=== PATIENT | female | born 1930 | race Caucasian/White ===

== ENCOUNTER → 2016-08-10 | Outpatient (REF) | payer MEDICARE ==
[~2016-08-10] MED LIST: ADV250INH INH; AMLO10TA2 PO; ASPI81TA13 PO; BENA40TA2 PO; BISO10TA6 PO; COLA100C PO; DOXY100C PO; FURO20TA2 PO; MILKSUS PO; NYST10PW TOP; PANT40TA2 PO; PERCOCET PO; PRAV1TAB39 PO; PROA1AER INH; VITA200016 PO
[2016-08-10 09:34] LABS: CALCIUM LEVEL 8.9 MG/DL (8.8-10.2); CREATININE FOR GFR 1.08 MG/DL (0.55-1.02); GLOMERULAR FILTRATION RATE 51.2 (>32); POTASSIUM SERUM 4.5 MEQ/L (3.5-5.1)
== END ==
LOC: SKLAB4 09:59
PROVIDERS: ATTEND Family Medicine
DX: N18.9 Chronic kidney disease, unspecified (principal)

== ENCOUNTER → 2016-09-07 | Outpatient (REF) | payer MEDICARE ==
[2016-09-07 09:51] LABS: CALCIUM LEVEL 9.5 MG/DL (8.8-10.2); CREATININE FOR GFR 1.2 MG/DL (0.55-1.02); GLOMERULAR FILTRATION RATE 45.3 (>32); POTASSIUM SERUM 4.8 MEQ/L (3.5-5.1)
== END ==
LOC: SKLAB4 09:15
PROVIDERS: ATTEND Family Medicine
DX: N18.9 Chronic kidney disease, unspecified (principal); J44.9 Chronic obstructive pulmonary disease, unspecified

== ENCOUNTER → 2016-10-05 | Outpatient (REF) | payer MEDICARE ==
[2016-10-05 08:30] LABS: MEAN CORPUSCULAR HEMOGLOBIN 30.5 pg (27.0-33.0); MEAN CORPUSCULAR HGB CONC 32.6 g/dl (32.0-36.5); MEAN CORPUSCULAR VOLUME 93.7 fl (80.0-96.0); RED CELL DISTRIBUTION WIDTH 13.7 % (11.5-14.5)
[2016-10-05 08:47] LABS: CALCIUM LEVEL 8.9 MG/DL (8.8-10.2); CREATININE FOR GFR 1.08 MG/DL (0.55-1.02); GLOMERULAR FILTRATION RATE 51.1 (>32); POTASSIUM SERUM 4.9 MEQ/L (3.5-5.1)
== END ==
LOC: SKLAB4 09:43
PROVIDERS: ATTEND Family Medicine
DX: E11.9 Type 2 diabetes mellitus without complications (principal); I10 Essential (primary) hypertension; R60.9 Edema, unspecified

== ENCOUNTER → 2017-01-04 | Outpatient (REF) | payer MEDICARE ==
[~2017-01-04] MED LIST changes: -COLA100C PO; +COLA100C3 PO
[2017-01-04 09:28] LABS: MEAN CORPUSCULAR HEMOGLOBIN 30.4 pg (27.0-33.0); MEAN CORPUSCULAR HGB CONC 32.8 g/dl (32.0-36.5); MEAN CORPUSCULAR VOLUME 92.7 fl (80.0-96.0); RED CELL DISTRIBUTION WIDTH 13.6 % (11.5-14.5); WHITE BLOOD COUNT 6.6 K/mm3 (4.0-10.0)
[2017-01-04 10:28] LABS: CALCIUM LEVEL 8.9 MG/DL (8.8-10.2); CREATININE FOR GFR 1.09 MG/DL (0.55-1.02); GLOMERULAR FILTRATION RATE 50.5 (>32); POTASSIUM SERUM 4.6 MEQ/L (3.5-5.1)
== END ==
LOC: SKLAB4 09:50
PROVIDERS: ATTEND Family Medicine
DX: N18.9 Chronic kidney disease, unspecified (principal)

== ENCOUNTER → 2017-04-05 | Outpatient (REF) | payer MEDICARE ==
[~2017-04-05] MED LIST changes: -ASPI81TA13 PO; +ASPI81TA24 PO; -BENA40TA2 PO; +BENA40TA7 PO; -COLA100C3 PO; +COLA100C5 PO; -PROA1AER INH; +PROAAER10 INH
[2017-04-05 10:17] LABS: MEAN CORPUSCULAR HEMOGLOBIN 30.9 pg (27.0-33.0); MEAN CORPUSCULAR HGB CONC 32.9 g/dl (32.0-36.5); MEAN CORPUSCULAR VOLUME 93.7 fl (80.0-96.0); RED CELL DISTRIBUTION WIDTH 13.5 % (11.5-14.5); WHITE BLOOD COUNT 5.5 K/mm3 (4.0-10.0)
[2017-04-05 10:31] LABS: CREATININE FOR GFR 1.21 MG/DL (0.55-1.02); GLOMERULAR FILTRATION RATE 44.8 (>32); POTASSIUM SERUM 4.3 MEQ/L (3.5-5.1)
== END ==
LOC: SKLAB4 09:57
PROVIDERS: ATTEND Family Medicine
DX: N18.9 Chronic kidney disease, unspecified (principal); E11.9 Type 2 diabetes mellitus without complications

== ENCOUNTER → 2017-06-24 | Outpatient (REF) | payer MEDICARE ==
--- NOTE | 2017-06-24 16:54 | REP ---
MANDIBLE SERIES COMPLETE: 06/24/2017. Clinical history: Non restorable teeth. Findings: Mandible performed as patients shoulders interfered with the Panorex study. She states issue on the right side. The right mandibular 1st molar has lucency about its roots minimally so for the second molar. The second molar shows a large carious defect anteriorly, other carious teeth and most of the maxillary dentition is missing. No fracture or destructive lesion. Bones are demineralized. Impression: 1. Lucency about the roots of the first molar on the right mandible and large carious defect anterior aspect of the second molar on that right side. Other carious teeth also noted on the mandible but roots not showing similar lucencies. Signed by Duy Jeronimo MD 06/24/2017 08:45 P
== END ==
LOC: SKLAB4 09:35
PROVIDERS: ATTEND Family Medicine
DX: K08.89 Other specified disorders of teeth and supporting structures (principal)

== ENCOUNTER → 2017-07-05 | Outpatient (REF) | payer MEDICARE ==
[2017-07-05 08:58] LABS: MEAN CORPUSCULAR HEMOGLOBIN 30.1 pg (27.0-33.0); MEAN CORPUSCULAR HGB CONC 31.6 g/dl (32.0-36.5); MEAN CORPUSCULAR VOLUME 95.2 fl (80.0-96.0); PLATELET COUNT, AUTOMATED 297 10^3/uL (150-450); RED CELL DISTRIBUTION WIDTH 13.3 % (11.5-14.5); WHITE BLOOD COUNT 7.3 10^3/uL (4.0-10.0)
[2017-07-05 09:32] LABS: CALCIUM LEVEL 9.4 MG/DL (8.8-10.2); CREATININE FOR GFR 1.16 MG/DL (0.55-1.02); POTASSIUM SERUM 4.4 MEQ/L (3.5-5.1)
== END ==
LOC: SKLAB4 09:42
PROVIDERS: ATTEND Family Medicine
DX: D64.9 Anemia, unspecified (principal); N28.9 Disorder of kidney and ureter, unspecified

== ENCOUNTER → 2017-10-04 | Outpatient (REF) | payer MEDICARE ==
[2017-10-04 08:26] LABS: HEMATOCRIT 35.9 % (36.0-47.0); HEMOGLOBIN 11.4 g/dl (12.0-16.0); MEAN CORPUSCULAR HEMOGLOBIN 30.1 pg (27.0-33.0); MEAN CORPUSCULAR HGB CONC 31.8 g/dl (32.0-36.5); MEAN CORPUSCULAR VOLUME 94.7 fl (80.0-96.0); PLATELET COUNT, AUTOMATED 251 10^3/uL (150-450); RED BLOOD COUNT 3.79 10^6/uL (4.00-5.40); RED CELL DISTRIBUTION WIDTH 13.1 % (11.5-14.5); WHITE BLOOD COUNT 8.1 10^3/uL (4.0-10.0)
[2017-10-04 08:51] LABS: ESTIMATED AVERAGE GLUCOSE 105 MG/DL (60-110); HEMOGLOBIN A1c 5.3 %
[2017-10-04 08:56] LABS: ANION GAP 12 MEQ/L (8-16); BLOOD UREA NITROGEN 28 MG/DL (7-18); CALCIUM LEVEL 8.7 MG/DL (8.8-10.2); CARBON DIOXIDE LEVEL 27 MEQ/L (21-32); CHLORIDE LEVEL 95 MEQ/L (98-107); CREATININE FOR GFR 1.17 MG/DL (0.55-1.30); GLOMERULAR FILTRATION RATE 46.5 (>32); GLUCOSE, FASTING 86 MG/DL (70-100); POTASSIUM SERUM 4.7 MEQ/L (3.5-5.1); SODIUM LEVEL 134 MEQ/L (136-145)
== END ==
LOC: SKLAB4 09:26
DX: E03.9 Hypothyroidism, unspecified (principal); D64.9 Anemia, unspecified; E11.9 Type 2 diabetes mellitus without complications
CPT/HCPCS: 84443

== ENCOUNTER → 2018-01-03 | Outpatient (REF) | payer MEDICARE ==
[2018-01-03 08:22] LABS: HEMATOCRIT 33.3 % (36.0-47.0); HEMOGLOBIN 10.7 g/dl (12.0-15.5); MEAN CORPUSCULAR HEMOGLOBIN 30.1 pg (27.0-33.0); MEAN CORPUSCULAR HGB CONC 32.1 g/dl (32.0-36.5); MEAN CORPUSCULAR VOLUME 93.8 fl (80.0-96.0); PLATELET COUNT, AUTOMATED 215 10^3/uL (150-450); RED BLOOD COUNT 3.55 10^6/uL (4.00-5.40); RED CELL DISTRIBUTION WIDTH 13.2 % (11.5-14.5)
[2018-01-03 08:43] LABS: ANION GAP 6 MEQ/L (8-16); BLOOD UREA NITROGEN 24 MG/DL (7-18); CALCIUM LEVEL 8.8 MG/DL (8.8-10.2); CARBON DIOXIDE LEVEL 30 MEQ/L (21-32); CHLORIDE LEVEL 97 MEQ/L (98-107); CREATININE FOR GFR 1.06 MG/DL (0.55-1.30); GLOMERULAR FILTRATION RATE 52.1 (>32); GLUCOSE, FASTING 87 MG/DL (70-100); POTASSIUM SERUM 4.9 MEQ/L (3.5-5.1); SODIUM LEVEL 133 MEQ/L (136-145)
== END ==
LOC: SKLAB4 09:45
DX: N18.9 Chronic kidney disease, unspecified (principal)
CPT/HCPCS: 36415

== ENCOUNTER → 2018-04-04 | Outpatient (REF) | payer MEDICARE ==
[2018-04-04 10:21] LABS: HEMOGLOBIN 11.3 g/dl (12.0-15.5); MEAN CORPUSCULAR HEMOGLOBIN 30.7 pg (27.0-33.0); MEAN CORPUSCULAR HGB CONC 32.3 g/dl (32.0-36.5); MEAN CORPUSCULAR VOLUME 95.1 fl (80.0-96.0); PLATELET COUNT, AUTOMATED 229 10^3/uL (150-450); RED BLOOD COUNT 3.68 10^6/uL (4.00-5.40); RED CELL DISTRIBUTION WIDTH 13.6 % (11.5-14.5); WHITE BLOOD COUNT 5.3 10^3/uL (4.0-10.0)
[2018-04-04 10:44] LABS: ANION GAP 10 MEQ/L (8-16); BLOOD UREA NITROGEN 20 MG/DL (7-18); CALCIUM LEVEL 9.2 MG/DL (8.8-10.2); CARBON DIOXIDE LEVEL 31 MEQ/L (21-32); CHLORIDE LEVEL 95 MEQ/L (98-107); CREATININE FOR GFR 1.08 MG/DL (0.55-1.30); GLUCOSE, FASTING 112 MG/DL (70-100); POTASSIUM SERUM 4.6 MEQ/L (3.5-5.1); SODIUM LEVEL 136 MEQ/L (136-145)
[2018-04-04 10:58] LABS: ESTIMATED AVERAGE GLUCOSE 111 MG/DL (60-110); HEMOGLOBIN A1c 5.5 %
== END ==
LOC: SKLAB4 10:02
DX: N18.9 Chronic kidney disease, unspecified (principal); E11.9 Type 2 diabetes mellitus without complications; D64.9 Anemia, unspecified
CPT/HCPCS: 83036

== ENCOUNTER → 2018-04-29 | Outpatient (REF) | payer MEDICARE ==
[2018-04-29 07:43] LABS: BASO % 0.3 % (0.0-1.0); EOS # 0.4 10^3/uL (0.0-0.50); EOS % 6.1 % (0.0-3.0); HEMATOCRIT 35.5 % (36.0-47.0); HEMOGLOBIN 11.4 g/dl (12.0-15.5); IMMATURE GRANULOCYTE % 1.7 % (0-3.0); LYMPH # 1.7 10^3/uL (1.5-4.5); LYMPH % 25.5 % (24.0-44.0); MEAN CORPUSCULAR HGB CONC 32.1 g/dl (32.0-36.5); MEAN CORPUSCULAR VOLUME 96.5 fl (80.0-96.0); MONO % 14.7 % (0.0-5.0); NEUTROPHILS # 3.4 10^3/uL (1.8-7.7); NEUTROPHILS % 51.7 % (36.0-66.0); PLATELET COUNT, AUTOMATED 244 10^3/uL (150-450); RED BLOOD COUNT 3.68 10^6/uL (4.00-5.40); RED CELL DISTRIBUTION WIDTH 13.4 % (11.5-14.5); WHITE BLOOD COUNT 6.5 10^3/uL (4.0-10.0)
== END ==
LOC: SKLAB4 06:59
DX: K62.5 Hemorrhage of anus and rectum (principal)
CPT/HCPCS: 85025

== ENCOUNTER → 2018-07-07 | Outpatient (REF) | payer MEDICARE ==
[~2018-07-07] MED LIST changes: -AMLO10TA2 PO; +AMLO10TA4 PO; +MILK12002 PO; -MILKSUS PO; -PANT40TA2 PO; +PANT40TA3 PO
[2018-07-07 07:53] LABS: CALCIUM LEVEL 9.1 MG/DL (8.8-10.2); CREATININE FOR GFR 1.15 MG/DL (0.55-1.30); GLOMERULAR FILTRATION RATE 47.4 (>32); POTASSIUM SERUM 4.8 MEQ/L (3.5-5.1)
== END ==
LOC: SKLAB4 10:07
PROVIDERS: ATTEND Family Medicine
DX: R60.9 Edema, unspecified (principal)

== ENCOUNTER → 2018-07-20 | Outpatient (CLI) | payer MEDICARE ==
[~2018-07-20] MED LIST changes: -AMLO10TA4 PO; +AMLO10TA5 PO; +MILK120011 PO; -MILK12002 PO
--- NOTE | 2018-07-20 08:00 | REP ---
Duplex extremity venous ultrasound: Left lower extremity. History: Pain and swelling. Question DVT. Findings: The deep veins are anechoic and fully compressible from the groin to the popliteal fossa in the left lower extremity. Color flow imaging is homogeneous. Spectral Doppler interrogation demonstrates intact respiratory variation in flow and normal manual augmentation of flow. There is no evidence of deep vein thrombosis. Impression: Negative left lower extremity duplex venous ultrasound. No evidence of deep vein thrombosis. Electronically Signed by Froilan Rolon MD 07/20/2018 07:51 A
[2018-07-21 09:07] LABS: CALCIUM LEVEL 8.7 MG/DL (8.8-10.2); CREATININE FOR GFR 1.12 MG/DL (0.55-1.30); GLOMERULAR FILTRATION RATE 48.9 (>32); POTASSIUM SERUM 5.2 MEQ/L (3.5-5.1)
== END ==
LOC: M RAD 06:06
PROVIDERS: ATTEND Nurse Practitioner Family
DX: M79.605 Pain in left leg (principal); M79.89 Other specified soft tissue disorders

== ENCOUNTER → 2018-07-21 | Outpatient (REF) | payer MEDICARE ==
[~2018-07-21] MED LIST changes: +AMLO10TA4 PO; -AMLO10TA5 PO; -MILK120011 PO; +MILK12002 PO
== END ==
LOC: SKLAB4 09:30
PROVIDERS: ATTEND Family Medicine
DX: R60.9 Edema, unspecified (principal)

== ENCOUNTER → 2018-07-21 | Outpatient (REF) | payer MEDICARE | LOC: SKLAB4 09:29 | PROVIDERS: ATTEND Family Medicine | DX: R60.9 Edema, unspecified (principal) ==

== ENCOUNTER → 2018-08-31 | Outpatient (REF) | payer MEDICARE ==
[~2018-08-31] MED LIST changes: +ACET1TAB55 PO; -AMLO10TA4 PO; +AMLO10TA5 PO; +AMLO2.5T3 PO; +CITA10TA5 PO; +DULC10SU2 PR; +GABA-1171 PO; +GABA600T4 PO; +MIAC200S2; +MILK120011 PO; -MILK12002 PO; +MULTCAP PO; +PREP1CRE EX; +SYMB16INH INH; +TYLE650T35 PO
[2018-09-03 00:07] LABS: FATS NEUTRAL Normal (.); FATS TOTAL Normal (.)
== END ==
LOC: SKLAB4 13:59
PROVIDERS: ATTEND Family Medicine
DX: Z01.818 Encounter for other preprocedural examination (principal)

== ENCOUNTER 2018-09-08 08:52 | Day surgery (SDC) | payer MEDICARE ==
[~2018-09-08] VITALS: Ht 147.3 cm; Wt 81.4 kg
[~2018-09-08 08:52] MED LIST changes: +NS 1,000 ML IV SCH
[2018-09-08] MEDS ORDERED: PROPOFOL 200 MG/20 ML VIAL As Ordered ONE (10:43)
[2018-09-08] MEDS ORDERED: LIDOCAINE 2% INJ 100 MG/5 ML SDV (FOR ANES.) As Ordered ONE (10:43)
[2018-09-08] MEDS ORDERED: ESMOLOL INJ 100MG/10ML VIAL As Ordered ONE (11:01)
--- NOTE | 2018-09-08 11:41 | ROOR ---
Patient Name: Emma Mckinney Procedure Date: 09/08/2018 10:56 AM Date of : 1930 Age: 87 Room: [facility] Gender: Female Note Status: Finalized Procedure: Colonoscopy Indications: Change in bowel habits, Diarrhea, Fecal incontinence Providers: Cayetano ALAS MD Referring MD: Sp Keating MD Requesting Provider: Medicines: Monitored Anesthesia Care Complications: No immediate complications. Procedure: Pre-Anesthesia Assessment: - The heart rate, respiratory rate, oxygen saturations, blood pressure, adequacy of pulmonary ventilation, and response to care were monitored throughout the procedure. The Colonoscope was introduced through the anus and advanced to the cecum, identified by appendiceal orifice and ileocecal valve. The colonoscopy was performed without difficulty. The patient tolerated the procedure well. The quality of the bowel preparation was good/adequate. (pt only took some of the mag citrate and 1/2 the trilyte prep) Findings: The digital rectal exam findings include decreased sphincter tone. Multiple small and large-mouthed diverticula were found in the sigmoid colon, descending colon, ascending colon and cecum. Erythema was seen in association with the diverticular opening. Biopsies were taken with a cold forceps for histology. Internal hemorrhoids were found during retroflexion. The hemorrhoids were large. The exam was otherwise normal throughout the examined colon. Biopsies for histology were taken with a cold forceps from the entire colon for evaluation of microscopic colitis. Impression: - Decreased sphincter tone found on digital rectal exam. - Moderate neves diverticulosis in the entire colon. Erythema was seen in association with the diverticular opening in the mid sigmoid area. The erythematous fold was biopsied. - Internal hemorrhoids. - Biopsies were taken with a cold forceps from the entire colon for evaluation of microscopic colitis. Recommendation: - Telephone endoscopist for pathology results in 2 weeks. - Await pathology results. Cayetano Alas MD Cayetano ALAS MD 09/08/2018 11:41:02 AM This report has been signed electronically. Number of Addenda: 0 Note Initiated On: 09/08/2018 10:56 AM Estimated Blood Loss: Estimated blood loss: none.
[2018-09-08 12:00] VITALS: BP 133/67
== END 2018-09-08 12:24 | disposition home or self-care (01) ==
LOC: M OPP 08:52
PROVIDERS: ATTEND Internal Medicine Gastroenterology
DX: K57.30 Diverticulosis of large intestine without perforation or abscess without bleeding (principal); K64.8 Other hemorrhoids; R19.4 Change in bowel habit; R19.7 Diarrhea, unspecified; R15.9 Full incontinence of feces; K62.89 Other specified diseases of anus and rectum

== ENCOUNTER → 2018-10-03 | Outpatient (REF) | payer MEDICARE ==
[~2018-10-03] MED LIST changes: -NS 1,000 ML IV SCH
[2018-10-03 11:45] LABS: HEMOGLOBIN A1c 5.7 %
== END ==
LOC: SKLAB4 12:31
PROVIDERS: ATTEND Family Medicine
DX: E03.9 Hypothyroidism, unspecified (principal); E11.9 Type 2 diabetes mellitus without complications; Z79.899 Other long term (current) drug therapy

== ENCOUNTER → 2018-10-31 | Outpatient (REF) | payer MEDICARE ==
[~2018-10-31] MED LIST changes: +NYST-15 TOP; -NYST10PW TOP
[2018-10-31 08:03] LABS: HEMATOCRIT 39.1 % (36.0-47.0); HEMOGLOBIN 12.1 g/dl (12.0-15.5); MEAN CORPUSCULAR HEMOGLOBIN 29.7 pg (27.0-33.0); MEAN CORPUSCULAR HGB CONC 30.9 g/dl (32.0-36.5); MEAN CORPUSCULAR VOLUME 95.8 fl (80.0-96.0); PLATELET COUNT, AUTOMATED 243 10^3/uL (150-450); RED BLOOD COUNT 4.08 10^6/uL (4.00-5.40); WHITE BLOOD COUNT 6.7 10^3/uL (4.0-10.0)
[2018-10-31 08:22] LABS: CALCIUM LEVEL 8.8 MG/DL (8.8-10.2); CREATININE FOR GFR 0.95 MG/DL (0.55-1.30); POTASSIUM SERUM 4.8 MEQ/L (3.5-5.1)
== END ==
LOC: SKLAB4 10:56
PROVIDERS: ATTEND Family Medicine
DX: N18.9 Chronic kidney disease, unspecified (principal)

== ENCOUNTER → 2019-01-30 | Outpatient (REF) | payer MEDICARE ==
[~2019-01-30] MED LIST changes: -BISO10TA6 PO; +BISO10TA7 PO
[2019-01-30 08:33] LABS: HEMATOCRIT 38.1 % (36.0-47.0); HEMOGLOBIN 11.9 g/dl (12.0-15.5); MEAN CORPUSCULAR HEMOGLOBIN 29.8 pg (27.0-33.0); MEAN CORPUSCULAR HGB CONC 31.2 g/dl (32.0-36.5); MEAN CORPUSCULAR VOLUME 95.5 fl (80.0-96.0); PLATELET COUNT, AUTOMATED 264 10^3/uL (150-450); RED BLOOD COUNT 3.99 10^6/uL (4.00-5.40); WHITE BLOOD COUNT 6.1 10^3/uL (4.0-10.0)
[2019-01-30 08:52] LABS: CALCIUM LEVEL 9.1 MG/DL (8.8-10.2); CREATININE FOR GFR 1.11 MG/DL (0.55-1.30); GLOMERULAR FILTRATION RATE 49.3 (>32); POTASSIUM SERUM 4.6 MEQ/L (3.5-5.1)
== END ==
LOC: SKLAB4 09:45
PROVIDERS: ATTEND Family Medicine
DX: N18.9 Chronic kidney disease, unspecified (principal)

== ENCOUNTER → 2019-03-02 | Outpatient (REF) | payer MEDICARE ==
[~2019-03-02] MED LIST changes: +BENA40TA5 PO; -BENA40TA7 PO; +BISO10TA14 PO; -BISO10TA7 PO
[2019-03-02 14:02] LABS: HEMATOCRIT 39.7 % (36.0-47.0); HEMOGLOBIN 12.6 g/dl (12.0-15.5); MEAN CORPUSCULAR HEMOGLOBIN 30.4 pg (27.0-33.0); MEAN CORPUSCULAR HGB CONC 31.7 g/dl (32.0-36.5); MEAN CORPUSCULAR VOLUME 95.9 fl (80.0-96.0); PLATELET COUNT, AUTOMATED 240 10^3/uL (150-450); RED BLOOD COUNT 4.14 10^6/uL (4.00-5.40); WHITE BLOOD COUNT 8.2 10^3/uL (4.0-10.0)
[2019-03-02 14:29] LABS: ALBUMIN 3.4 GM/DL (3.2-5.2); BILIRUBIN,TOTAL 0.3 MG/DL (0.2-1.0); CALCIUM LEVEL 9.3 MG/DL (8.8-10.2); CREATININE FOR GFR 1.11 MG/DL (0.55-1.30); GLOMERULAR FILTRATION RATE 49.3 (>32); POTASSIUM SERUM 4.8 MEQ/L (3.5-5.1); TOTAL PROTEIN 7.7 GM/DL (6.4-8.2)
== END ==
LOC: SKLAB4 12:52
PROVIDERS: ATTEND Family Medicine
DX: G89.4 Chronic pain syndrome (principal); D64.9 Anemia, unspecified

== ENCOUNTER → 2019-04-03 | Outpatient (REF) | payer MEDICARE ==
[~2019-04-03] MED LIST changes: -BENA40TA5 PO; +BENA40TA7 PO; +BISO10TA10 PO; -BISO10TA14 PO
[2019-04-03 09:04] LABS: HEMOGLOBIN A1c 5.8 %
== END ==
LOC: SKLAB4 10:02
PROVIDERS: ATTEND Family Medicine
DX: E11.9 Type 2 diabetes mellitus without complications (principal)

== ENCOUNTER → 2019-04-13 | Outpatient (REF) | payer MEDICARE ==
--- NOTE | 2019-04-13 11:29 | REP ---
Left wrist series: Four views. History: Left wrist pain. Findings: Four views of the left wrist demonstrate marked diffuse osteopenia. There is osteoarthritis in the carpometacarpal joint for the first digit. There is mild narrowing and sclerosis at the remaining carpometacarpal joints. No fracture is seen. No erosive changes noted. Impression: Osteoarthritic changes at the carpometacarpal joints, most prominently affecting the thumb. Diffuse osteopenia. No acute bony abnormality. Electronically Signed by Froilan Rolon MD 04/13/2019 12:48 P
== END ==
LOC: SKLAB4 10:29
PROVIDERS: ATTEND Family Medicine
DX: M25.532 Pain in left wrist (principal); M85.80 Other specified disorders of bone density and structure, unspecified site; M19.032 Primary osteoarthritis, left wrist

== ENCOUNTER → 2019-05-01 | Outpatient (REF) | payer MEDICARE ==
--- NOTE | 2019-05-01 22:28 | REPVR ---
PROCEDURE INFORMATION: Exam: XR Abdomen, 1 View Exam date and time: 05/01/2019 9:33 PM Clinical history: 88 years old, female; Other: Loose stools TECHNIQUE: Imaging protocol: XR of the abdomen. Views: Frontal supine view of the abdomen. 1 View. COMPARISON: CR Abdomen,Flat Plate KUB 05/15/2017 7:57 PM FINDINGS: Limitations: Limited by patient's body habitus. Gastrointestinal tract: Normal. No bowel dilation. Bones/joints: Unremarkable for age. IMPRESSION: No acute abnormality. Electronically signed by: Cayetano Chiang On 05/01/2019 22:27:47 PM
== END ==
LOC: M RAD 20:27
PROVIDERS: ATTEND Family Medicine
DX: K59.1 Functional diarrhea (principal)

== ENCOUNTER → 2019-05-08 | Outpatient (REF) | payer MEDICARE ==
[2019-05-08 07:26] LABS: HEMATOCRIT 40.7 % (36.0-47.0); HEMOGLOBIN 12.5 g/dl (12.0-15.5); MEAN CORPUSCULAR HGB CONC 30.7 g/dl (32.0-36.5); MEAN CORPUSCULAR VOLUME 97.8 fl (80.0-96.0); PLATELET COUNT, AUTOMATED 240 10^3/uL (150-450); RED BLOOD COUNT 4.16 10^6/uL (4.00-5.40); WHITE BLOOD COUNT 6.9 10^3/uL (4.0-10.0)
[2019-05-08 08:22] LABS: CALCIUM LEVEL 9.4 MG/DL (8.8-10.2); CREATININE FOR GFR 1.03 MG/DL (0.55-1.30); GLOMERULAR FILTRATION RATE 53.7 (>32)
== END ==
LOC: SKLAB4 11:20
PROVIDERS: ATTEND Family Medicine
DX: N18.9 Chronic kidney disease, unspecified (principal); J44.9 Chronic obstructive pulmonary disease, unspecified

== ENCOUNTER → 2019-05-15 | Outpatient (REF) | payer MEDICARE ==
[2019-05-15 08:22] LABS: CALCIUM LEVEL 8.9 MG/DL (8.8-10.2); CREATININE FOR GFR 1.15 MG/DL (0.55-1.30); GLOMERULAR FILTRATION RATE 47.3 (>32); POTASSIUM SERUM 4.8 MEQ/L (3.5-5.1)
== END ==
LOC: SKLAB4 08:00
PROVIDERS: ATTEND Family Medicine
DX: Z79.899 Other long term (current) drug therapy (principal); Z51.81 Encounter for therapeutic drug level monitoring

== ENCOUNTER → 2019-08-07 | Outpatient (REF) | payer MEDICARE ==
[~2019-08-07] MED LIST changes: +BENA40TA5 PO; -BENA40TA7 PO; -BISO10TA10 PO; +BISO10TA14 PO
[2019-08-07 08:24] LABS: HEMATOCRIT 40.7 % (36.0-47.0); HEMOGLOBIN 12.6 g/dl (12.0-15.5); MEAN CORPUSCULAR HEMOGLOBIN 30.5 pg (27.0-33.0); MEAN CORPUSCULAR VOLUME 98.5 fl (80.0-96.0); PLATELET COUNT, AUTOMATED 252 10^3/uL (150-450); RED BLOOD COUNT 4.13 10^6/uL (4.00-5.40); WHITE BLOOD COUNT 7.3 10^3/uL (4.0-10.0)
[2019-08-07 08:54] LABS: CALCIUM LEVEL 8.7 MG/DL (8.8-10.2); CREATININE FOR GFR 1.13 MG/DL (0.55-1.30); GLOMERULAR FILTRATION RATE 48.3 (>32); POTASSIUM SERUM 4.9 MEQ/L (3.5-5.1)
== END ==
LOC: SKLAB4 12:22
PROVIDERS: ATTEND Family Medicine
DX: N18.9 Chronic kidney disease, unspecified (principal)